=== PATIENT | male | born 1955 | race Caucasian/White ===

== ENCOUNTER 2019-10-28 09:58 | Day surgery (SDC) | payer BC ==
[~2019-10-28 09:58] MED LIST: Lactated Ringers 1,000 ML IV SCH
[2019-10-28] MEDS ORDERED: DIPRIVAN 200 MG/20 ML IV ONE ×3 (13:49→14:02)
[2019-10-28] MEDS ORDERED: DUONEB 0.5-3 MG/3 ml Neb IH ONE (14:30)
[2019-10-28] MEDS ORDERED: Lactated Ringers 1,000 ML IV ONE (14:56)
--- NOTE | 2019-10-28 16:16 | XRAY ---
Indication: Cough. Status post colonoscopy. Comparison: None Portable chest demonstrates left base subsegmental atelectasis/scarring. Remaining heart and lungs normal. Bony thorax intact with mild degenerative changes.
[2019-10-28 16:50] VITALS: BP 140/77; PULSE 83; O2SAT 93
--- NOTE | 2019-11-25 10:44 | OP ---
PROCEDURE DATE/TIME: 10/28/2019 1325 PREOPERATIVE DIAGNOSIS: History of polyps. POSTOPERATIVE DIAGNOSES: 1) Marginal bowel prep. 2) Colorectal polyp. PROCEDURE: Colonoscopy with hot snare polypectomy x2. PROCEDURE PERFORMED BY: Helena Ferrara M.D. COMPLICATIONS: None. ESTIMATED BLOOD LOSS: Minimal. ANESTHESIA: MAC. SPECIMEN: Sigmoid polyp at 25 cm and distal rectal polyp. HISTORY: This is a gentleman who presents for surveillance due to history of significant polyps. Risks, benefits, alternatives and H&P have been reviewed and confirmed. DESCRIPTION OF PROCEDURE: He was brought back to the endoscopy suite, laid in the left lateral decubitus position. A complete time out performed. Digital rectal exam was done then the scope was entered and gently advanced to the level of the cecum. The prep throughout was initially marginal. I had to do quite a bit irrigating to accomplish a good view but I was able to get a satisfactory view after copious irrigation. We were able to identify the cecum, ileocecal valve, appendiceal orifice and these were normal. Scope was then carefully withdrawn taking a circumferential view. The remainder of the colonic mucosa was normal. He did have a moderate amount of diverticulosis in the sigmoid and descending colon. He had a semi-pedunculated polyp at 25 cm in the sigmoid and then he had another polyp in his distal rectum. Both of these looked benign on gross exam and they were approximately 8 mm in size. These were completely removed and retrieved with the hot snare and the trap. I only saw very subtle aspects of the site where he has had a prior tattoo, this was hard to visualize but looks like it has faded. I did not see any growth in the region of his sigmoid where he did have his prior large polyp in 2017. We very thoroughly looked through this. I did copiously irrigate this. His prep was not perfect. A very small or flat lesion could be missed but there are no lesions that are large here at all. The scope was then completely withdrawn. The patient tolerated the procedure very well. There were no complications. He had some mild hemorrhoid, moderate diverticulosis and the polyp. Outside of this the mucosa looked normal. Plan is going to be to do another colonoscopy in approximately two years since he did not have a perfect prep to rule out very tiny, small lesions but I do think his prep was adequate to rule out any sizeable lesion. He is going to be following up with me as an outpatient and I will recommend a sooner colonoscopy should he have any new symptoms during that time period.
== END 2019-10-28 16:55 | disposition home or self-care (01) ==
LOC: SDC 09:58
PROVIDERS: ATTEND Surgery
DX: Z12.11 Encounter for screening for malignant neoplasm of colon (principal); Z09 Encounter for follow-up examination after completed treatment for conditions other than malignant neoplasm; Z86.010 Personal history of colon polyps; K57.30 Diverticulosis of large intestine without perforation or abscess without bleeding; D12.5 Benign neoplasm of sigmoid colon; D12.8 Benign neoplasm of rectum; I10 Essential (primary) hypertension; J98.4 Other disorders of lung; K64.9 Unspecified hemorrhoids
CPT/HCPCS: 71045; 88305; 94640; J2704; A9270-GY